=== PATIENT | female | born 1970 | race African-American/Black ===

== ENCOUNTER 2016-10-07 13:25 | Emergency (ER) | payer OTHER ==
[~2016-10-07] VITALS: Ht 175.3 cm; Wt 122.9 kg
[~2016-10-07 13:25] MED LIST: AMBIEN10 MG PO; ATIVAN1 MG PO; COU5 PO; CYMBALTA60 M1 PO; ELIQUIS5 MG PO; HYD25 PO; KEPPRA500 MG PO; LOP100 PO; LYRICA50 M1 PO; MOTRIN800 MG PO; NOR10 PO; PER5 PO; PRE125 PO; PRI20 PO; TOP100 PO; VAL10 PO; VITAMIN-D1000 IU PO; XARELTO10 M1 PO; ZES20 PO
[2016-10-07 13:29] VITALS: BP 161/129
== END 2016-10-07 16:05 | disposition home or self-care (01) ==
LOC: ED 13:25
DX: M79.604 Pain in right leg (principal); I10 Essential (primary) hypertension; G40.909 Epilepsy, unspecified, not intractable, without status epilepticus; Z86.73 Personal history of transient ischemic attack (TIA), and cerebral infarction without residual deficits; Z86.718 Personal history of other venous thrombosis and embolism; Z88.5 Allergy status to narcotic agent; Z79.01 Long term (current) use of anticoagulants; Z79.891 Long term (current) use of opiate analgesic; Z98.890 Other specified postprocedural states
CPT/HCPCS: J3010; Q0092; Q0162

== ENCOUNTER 2017-06-08 16:38 | Emergency (ER) | payer OTHER ==
[~2017-06-08] VITALS: Ht 175.3 cm; Wt 122.9 kg
[2017-06-08 17:36] VITALS: Ht 175.3 cm; Wt 122.9 kg
[2017-06-08 19:14] LABS: microscopic required? NO
[2017-06-08 19:24] LABS: BASOPHIL % 0.8 % (0-2); PLATELET COUNT 230 x10^3mcL (130-400); RED CELL DISTRIBUTION WIDTH 14.4 % (11.5-14.5)
[2017-06-08 19:38] LABS: CARBON DIOXIDE 26.8 mmol/L (21-32); CHLORIDE SERUM 103 mmol/L (98-107); CREATININE SERUM 0.8 mg/dL (0.6-1.0); GFR1 > 60 mL/min; GLUCOSE SERUM 90 mg/dL (74-106); POTASSIUM SERUM 3.8 mmol/L (3.5-5.1); SODIUM SERUM 138 mmol/L (136-145)
[2017-06-08 19:39] LABS: urine erythrocyte NEGATIVE (NEGATIVE)
[2017-06-08 19:44] LABS: ALBUMIN 3.7 g/dL (3.4-5.0); ALKALINE PHOSPHATASE 77 U/L (46-116); ALT/SGPT 16 U/L (14-59); AST/SGOT 16 U/L (15-37); BILIRUBIN TOTAL 0.27 mg/dL (0.20-1.00); LIPASE 70 IU/L (73-393)
[2017-06-08 19:47] LABS: CHOLESTEROL 212 mg/dL (<200); HDL CHOLESTEROL 75 mg/dL (40-60)
[2017-06-08 21:56] VITALS: BP 170/102
== END 2017-06-08 21:56 | disposition home or self-care (01) ==
LOC: ED 16:38
PROVIDERS: Emergency Medicine
DX: K59.00 Constipation, unspecified (principal); I10 Essential (primary) hypertension; Z88.5 Allergy status to narcotic agent
CPT/HCPCS: 83880; J0360; J1170; J2405; J3010; J7030

== ENCOUNTER 2019-06-14 12:40 | Inpatient (IN) | payer OTHER ==
[~2019-06-14] VITALS: Ht 175.3 cm; Wt 124.7 kg
[2019-06-14 12:48] VITALS: Ht 175.3 cm; Wt 124.7 kg
--- NOTE | 2019-06-14 12:51 | NUR ---
EKG IN PROGRESS.
[2019-06-14 13:36] LABS: PLATELET COUNT 253 x10^3mcL (130-400); RED CELL DISTRIBUTION WIDTH 12.9 % (11.5-14.5)
--- NOTE | 2019-06-14 13:36 | NUR ---
PT BIB SELF C/C CP STS WOKE UP LIKE THAT STS ABD PAIN WELL PLACED ON MONITOR DR AT BEDSIDE TO MINO
[2019-06-14 13:43] LABS: BASOPHIL % 2.2 % (0-2)
[2019-06-14 14:06] LABS: CHLORIDE SERUM 102 mmol/L (98-107); POTASSIUM SERUM 3.9 mmol/L (3.5-5.1); SODIUM SERUM 138 mmol/L (136-145)
[2019-06-14 14:07] LABS: CARBON DIOXIDE 24.2 mmol/L (21-32); GLUCOSE SERUM 84 mg/dL (74-106)
[2019-06-14 14:08] LABS: ALBUMIN 3.6 g/dL (3.4-5.0); ALKALINE PHOSPHATASE 57 U/L (46-116); ALT/SGPT 22 U/L (14-59); AST/SGOT 12 U/L (15-37); BILIRUBIN TOTAL 0.3 mg/dL (0.20-1.00); CALCIUM 9.2 mg/dL (8.5-10.1); CREATININE SERUM 0.8 mg/dL (0.6-1.0); GFR1 > 60 mL/min; TOTAL PROTEIN, SERUM 7.9 g/dL (6.4-8.2)
[2019-06-14 14:44] LABS: LIPASE 67 IU/L (73-393); MAGNESIUM 1.8 mg/dL (1.8-2.4)
--- NOTE | 2019-06-14 16:02 | NUR ---
PLEASE ENTER FULL NAMES OF BELT WORKER/RN Patient data collected by (BELT WORKER):noris tanner Assessment reviewed and completed by (RN):tanisha douglass
[2019-06-14 16:15] LABS: T3 TOTAL 1.25 ng/mL
--- NOTE | 2019-06-14 16:33 | NUR ---
PT ADMIT TO TELE ROOM 218B GAVE REPORT TO YOSVANY
--- NOTE | 2019-06-14 16:59 | NUR ---
RECEIVED PT VIA [employer] FROM E/D, ACCOMPANIED BY RN, TRANSPORTER, AND PT'S FAMILY MEMBERS. PT A/A/O X 4, CALM, COOPERATIVE; C/O INTERMITTENT THROBBING H/A; WEARS GLASSES (W/ PT). AMBULATORY, NO GAIT OR BALANCE IMPAIRMENT NOTED WHEN WALKING FROM GURNEY TO BED. ON TELE # 4, HR 84, SR + BBB + DEPRESSED ST WAVES + PACs; +DIZZINESS. SCD BY BEDSIDE. NO ACUTE RESPIRATORY DISTRESS NOTED. ABD SOFT, ROUND, NON-TENDER, NORMOACTIVE BOWEL SOUNDS X 4 QUADS, LAST BM 06/14/19, BLOODY DIARRHEA. VOIDS FREELY, C/O DARK YELLOW/CLOUDY URINE. IV SITE RH 22G, CDI. ORIENTED PT AND FAMILY MEMBERS TO ROOM, BED CONTROLS, CALL LIGHT SYSTEM. SIDE RAILS UP X 2, BED IN LOW POSITION. WILL ENDORSE TO FATUMA BAR.
[2019-06-14 17:16] LABS: FREE T4 1.03 ng/dL (0.76-1.46)
[2019-06-14 17:17] LABS: FREE THYROXINE INDEX 2.9 ug/dL (1.4-4.5); T4(THYROXINE) 10.8 ug/dL (4.7-13.3)
[2019-06-14 18:20] VITALS: BP 127/80
[2019-06-14 18:20] LABS: UA SPECIFIC GRAVITY >=1.030 (1.005-1.035); microscopic required? YES; urine erythrocyte NEGATIVE (NEGATIVE)
[2019-06-14 18:55] LABS: AMPHETAMINE QUAL UR NONE DETECTED (See below)
--- NOTE | 2019-06-14 19:12 | NUR ---
PATIENT NOW RESTING COMFORTABLY IN BED WITH ALL NEEDS MET. SALINE LOCK TO RT HAND IS PATENT AND INTACT. NO REDNESS OR PAIN. TELE #[address] PT MEDICATED FOR CHEST PAIN. PT ON O2 2L NC. NO C/O SOB AND NO DISTRESS NOTED. WILL ENDORSE ALL CARE TO ONCOMING NURSE.
--- NOTE | 2019-06-14 19:51 | NUR ---
Awake and verbally responsive. No respiratory distress noted on room air. Denies pain. Denies n/v. Ambulatory. Will cont.to monitor. Call light within reach. Contact isolation hx of MRSA wound,nares.
[2019-06-14 20:43] VITALS: BP 126/79
--- NOTE | 2019-06-15 04:22 | NUR ---
Afebrile. No significant change in condition noted. Medicated as ordered for c/o abd'l pain with relief. Denies n/v. On IV rocephin.
[2019-06-15 06:00] VITALS: BP 110/72
[2019-06-15 07:08] LABS: BASOPHIL % 1.3 % (0-2); PLATELET COUNT 194 x10^3mcL (130-400); RED CELL DISTRIBUTION WIDTH 13.1 % (11.5-14.5)
--- NOTE | 2019-06-15 07:45 | NUR ---
ALERT AND ORIENTED. BREATHING FREELY ON RA. C/O ABD PAIN 10/30 SHARP. WILL ADMIN MORPHINE. SAYS SHE IS INDEPENDENT W ADL'S. ABLE TO GET TO BR ON HER OWN. SL TO RT HAND PATENT.TELE # [address] SR [address] BBB DEPRESSED ST. CALL LIGHT WITHIN REACH,
[2019-06-15 08:47] VITALS: BP 127/81
[2019-06-15 08:49] LABS: CARBON DIOXIDE 27.6 mmol/L (21-32); CHLORIDE SERUM 106 mmol/L (98-107); GLUCOSE SERUM 78 mg/dL (74-106); POTASSIUM SERUM 3.9 mmol/L (3.5-5.1); SODIUM SERUM 143 mmol/L (136-145)
[2019-06-15 08:50] LABS: CALCIUM 9.1 mg/dL (8.5-10.1); CREATININE SERUM 0.8 mg/dL (0.6-1.0); GFR1 > 60 mL/min; PHOSPHOROUS 4.5 mg/dL (2.5-4.9)
[2019-06-15 11:46] VITALS: BP 112/70
--- NOTE | 2019-06-15 15:00 | NUR ---
CALLED PT PHARMACY REGARDING PT HOME MEDICATION, SPOKE WITH DARRELL, PROVIDED FAX NUMBER PER DARRELL WILL FAX OVER PT CURRENT LIST OF MEDICATIONS.
--- NOTE | 2019-06-15 16:08 | NUR ---
RETURNED TELE # 4 TO TELE STATION. PT MED SURG PT.
[2019-06-15] MEDS ORDERED: CAMBIA50 M1 PO (16:15)
[2019-06-15] MEDS ORDERED: LOVENOX150 MG/ML IJ (16:24)
[2019-06-15 16:49] VITALS: BP 113/70
[2019-06-15] MEDS ORDERED: MIRALAX17 GM PO (17:27)
[2019-06-15 17:28] VITALS: BP 113/70
[2019-06-15] MEDS ORDERED: PANTOPRAZOLE SO40 M1 PO (17:32)
--- NOTE | 2019-06-15 18:29 | NUR ---
DC'D TO HOME. TO CALL DR. Yamila MOBLEY FOR F/U [place]. GIVEN F/UN [place] WITH PCP. IV DC'D . [facility] ALL DC INSTRUCTIONS REVIEWED WITH AND SIGNED BY PT.
--- NOTE | 2019-06-16 07:15 | NUR ---
ECHOCARDIOGRAM NOT DONE PT DISCHARGED.
[2019-06-18] MEDS ORDERED: LEVAQUIN500 M1 PO (14:17)
== END 2019-06-15 18:29 | disposition home or self-care (01) | DRG 311 ==
LOC: ED 12:40 → DU 15:26 → MU 06-15 16:05
PROVIDERS: Emergency Medicine; ADMIT Student in an Organized Health Care Education/Training Program
DX: I20.0 Unstable angina (principal); Z68.41 Body mass index [BMI] 40.0-44.9, adult; N39.0 Urinary tract infection, site not specified; I10 Essential (primary) hypertension; E66.01 Morbid (severe) obesity due to excess calories; I25.2 Old myocardial infarction; Z79.890 Hormone replacement therapy; Z86.711 Personal history of pulmonary embolism; Z79.01 Long term (current) use of anticoagulants; Z85.43 Personal history of malignant neoplasm of ovary; Z86.718 Personal history of other venous thrombosis and embolism
CPT/HCPCS: 83880; 84439; 85378; 90658; 90732; C9113; G0378; J0696; J2270